=== PATIENT | female | born 1935 | race Two or more races ===

== ENCOUNTER 2022-10-14 09:53 | Inpatient (IN) | payer MEDICARE, MEDICAID ==
[~2022-10-14] VITALS: Ht 152.4 cm; Wt 75.0 kg
[2022-10-14] VITALS (32 sets, daily range): BP systolic 58–162; BP diastolic 21–110
[2022-10-14] MEDS ORDERED: SUCCINYLCHOLINE CHLORIDE 20 MG/ML 10ML VIAL IV ONE ×2 (10:20→10:30)
[2022-10-14] MEDS ORDERED: ETOMIDATE (2MG/ML) 20ML VIAL IV ONE ×2 (10:20→10:30)
[2022-10-14] MEDS ORDERED: MIDAZOLAM DRIP 50 mg/50mL 50 ML IV ONE (10:27)
[2022-10-14] MEDS ORDERED: MIDAZOLAM HCL 2MG/2ML 2ml VIAL (1mg/ml) ONE (10:28)
[2022-10-14] MEDS ORDERED: MIDAZOLAM HCL 5 MG/ML-1ML VIAL IV ONE (10:30)
[2022-10-14] MEDS: MIDAZOLAM DRIP 50 mg/50mL 50 ML IV SCH ×4 (10:45→21:34)
[2022-10-14] MEDS ORDERED: NOREPINEPHRINE 8 MG/250ML KIT 250 ML IV ONE ×2 (11:07→11:10)
[2022-10-14] MEDS ORDERED: FUROSEMIDE 40 MG/4 ML VIAL IV ONE (11:15)
[2022-10-14] MEDS ORDERED: AZITHROMYCIN 500MG/ 250ML 250 ML IV ONE (11:15)
[2022-10-14] MEDS: NOREPINEPHRINE 8 MG/250ML KIT 250 ML IV SCH ×3 (11:15→23:10)
[2022-10-14] MEDS ORDERED: cefTRIAXone 1GM/50ML D5W 50 ML IV ONE (11:15)
[2022-10-14 11:41] LABS: Hematocrit 32.3 % (36.0-46.0); Red Blood Cells 2.97 10^6/uL (4.0-5.20); Red Cell Distribution Width 16.8 % (11.8-14.3); White Blood Cell 17.5 10^3/uL (4.4-10.8)
[2022-10-14 11:57] LABS: Basophils % (manual) 0 (0.0-2.0); Blast Cells 0; Metamyelocytes % 0; Myelocytes % 0; Promyelocytes % 0; Reactive Lymphocytes 0
[2022-10-14 12:17] LABS: Lactic Acid w/Reflex 4.5 mmol/L (0.4-2.0)
[2022-10-14] MEDS ORDERED: NITROGLYCERIN 0.4 MG SL TAB SL PRN (12:30)
[2022-10-14] MEDS ORDERED: MORPHINE SULFATE INJ 2 MG/ml SYRG IV PRN (12:30)
[2022-10-14] MEDS ORDERED: AZITHROMYCIN 500MG/ 250ML 250 ML IV SCH (13:00)
[2022-10-14] MEDS ORDERED: FURO40TA4 PO (13:08)
[2022-10-14] MEDS ORDERED: METO-289 PO (13:08)
[2022-10-14 13:14] LABS: Albumin 1.4 g/dL (3.4-5.0); BUN/Creatinine Ratio 21.9; Calcium 7.8 mg/dL (8.5-10.1); Potassium 4.9 mmol/L (3.5-5.1)
[2022-10-14] MEDS ORDERED: ALBUTEROL SULF 2.5 MG/0.5ML(0.5%) NEB SOLN NEB PRN (13:15)
[2022-10-14 13:17] LABS: Urine WBC None Seen /hpf (0 - 5)
[2022-10-14 13:21] LABS: Bilirubin, Total 4.4 mg/dL (0.2-1.0); Total Protein 5.3 g/dL (6.4-8.2)
[2022-10-14 13:23] LABS: Band Neutrophils % (manual) 9; Eosinophils % (manual) 1 (0-7); Lymphocytes % (manual) 6 (10.0-50.0); Monocytes % (manual) 2 (0-12)
[2022-10-14] MEDS: SODIUM CHLORIDE 0.9% 1,000 ML IV SCH (13:32)
[2022-10-14 13:46] LABS: Urine Bacteria FEW /hpf (None Seen); Urine Blood 1+ /uL (Negative); Urine Specific Gravity 1.016 (1.001-1.035)
[2022-10-14] MEDS ORDERED: DOPamine 1600MCG/ML D5W 250 ML IV SCH (14:00)
[2022-10-14 14:59] LABS: Protein, Urine 77.5 mg/dL (0.0-11.9)
[2022-10-14 15:21] LABS: Magnesium 2.2 mg/dL (1.6-2.6); Phosphorus 2.9 mg/dL (2.5-4.90)
[2022-10-14] MEDS: ALBUMIN 25% 100 ML IV SCH ×2 (15:32→22:25)
[2022-10-14 16:42] LABS: Cholesterol 112 mg/dL (< 200)
[2022-10-14 16:49] LABS: HDL Cholesterol 23 mg/dL (40-59); LDL Cholesterol 71 mg/dL (< 100); Triglycerides 67 mg/dL (< 150)
[2022-10-14] MEDS ORDERED: AMIODARONE HCL 200 MG TAB PO ONE (17:00)
[2022-10-14] MEDS ORDERED: ASPirin 81 mg TAB PO ONE (17:00)
[2022-10-14] MEDS: PROPOFOL 100 ML IV SCH ×2 (17:12→20:05)
[2022-10-14] MEDS: IPRATROPIUM BROM 0.5 MG/2.5ML INH SOL NEB SCH (18:04)
[2022-10-14] MEDS: ALBUTEROL SULF 2.5 MG/0.5ML(0.5%) NEB SOLN NEB SCH (18:05)
[2022-10-14] MEDS: FUROSEMIDE 20 MG/2 ML VIAL IV SCH (18:23)
[2022-10-14 18:33] LABS: Partial Thromboplastin Time 44.9 sec (24.6-33.4)
[2022-10-14 18:51] LABS: INR 1.96 (0.9-1.15)
[2022-10-14] MEDS ORDERED: MIDAZOLAM HCL 2MG/2ML 2ml VIAL (1mg/ml) IV ONE (19:15)
[2022-10-14] MEDS: PHENYLEPHRINE IV 250 ML IV SCH (20:08)
[2022-10-14] MEDS ORDERED: AMIODARONE HCL 200 MG TAB PO SCH (22:00)
[2022-10-15] VITALS (44 sets, daily range): BP systolic 58–193; BP diastolic 21–139
[2022-10-15] MEDS: ALBUTEROL SULF 2.5 MG/0.5ML(0.5%) NEB SOLN NEB SCH ×2 (00:26→06:10)
[2022-10-15] MEDS: IPRATROPIUM BROM 0.5 MG/2.5ML INH SOL NEB SCH ×3 (00:26→11:23)
[2022-10-15] MEDS: PHENYLEPHRINE IV 250 ML IV SCH ×6 (00:33→12:12)
[2022-10-15] MEDS ORDERED: VASOPRESSIN 20 UNIT/ML ONE (00:42)
[2022-10-15] MEDS ORDERED: VASOPRESSIN 20 UNITS in SODIUM CHL 0.9% 99 ML IV SCH (01:00)
[2022-10-15] MEDS ORDERED: FUROSEMIDE 20 MG/2 ML VIAL IV ONE (01:00)
[2022-10-15] MEDS ORDERED: EPINEPHrine HCL 250 ML IV ONE (02:36)
[2022-10-15] MEDS ORDERED: EPINEPHrine HCL 250 ML IV SCH (02:45)
[2022-10-15] MEDS: SODIUM CHLORIDE 0.9% 1,000 ML IV SCH (02:48)
[2022-10-15] MEDS: NOREPINEPHRINE 8 MG/250ML KIT 250 ML IV SCH ×3 (03:42→12:11)
[2022-10-15 04:11] LABS: Hemoglobin 10.2 g/dL (12.2-16.2)
[2022-10-15 04:13] LABS: Hematocrit 31.2 % (36.0-46.0); Mean Corpuscular Hemoglobin 38.2 pg (28.0-32.0); Mean Corpuscular Hgb Conc. 32.7 g/dL (32.0-36.0); Mean Corpuscular Volume 116.8 fL (80.0-100.0); Red Blood Cells 2.67 10^6/uL (4.0-5.20); Red Cell Distribution Width 17.5 % (11.8-14.3); White Blood Cell 17.7 10^3/uL (4.4-10.8)
[2022-10-15 04:22] LABS: Potassium 4.5 mmol/L (3.5-5.1)
[2022-10-15 04:25] LABS: Albumin 2.4 g/dL (3.4-5.0); BUN/Creatinine Ratio 17.7; Calcium 8.1 mg/dL (8.5-10.1)
[2022-10-15 04:28] LABS: Bilirubin, Total 5.6 mg/dL (0.2-1.0); Total Protein 5.6 g/dL (6.4-8.2)
[2022-10-15] MEDS ORDERED: DEXTROSE 50% SYRINGE 50 ML IV ONE ×2 (04:41→05:35)
[2022-10-15 04:47] LABS: Basophils % (manual) 0 (0.0-2.0); Blast Cells 0; Eosinophils % (manual) 0 (0-7); Metamyelocytes % 0; Myelocytes % 0; Promyelocytes % 0; Reactive Lymphocytes 0
[2022-10-15] MEDS: FUROSEMIDE 20 MG/2 ML VIAL IV SCH (05:19)
[2022-10-15] MEDS: MIDAZOLAM DRIP 50 mg/50mL 50 ML IV SCH (05:49)
[2022-10-15] MEDS: ALBUMIN 25% 100 ML IV SCH (06:00)
[2022-10-15 08:04] LABS: Band Neutrophils % (manual) 6; Lymphocytes % (manual) 10 (10.0-50.0); Monocytes % (manual) 4 (0-12)
[2022-10-15] MEDS ORDERED: cefTRIAXone 1GM/50ML D5W 50 ML IV SCH (09:00)
[2022-10-15] MEDS ORDERED: SODIUM BICARBONATE 50ML VIAL 50 ML in D5W/SOD CHL 0.45% 1,000 ML IV SCH ×2 (09:15→10:30)
[2022-10-15] MEDS ORDERED: BUMETANIDE INJECTION 12.5 MG in GIVE UN-DILUTED 0 ML IV SCH (09:15)
[2022-10-15] MEDS ORDERED: FUROSEMIDE 20 MG/2 ML VIAL IV SCH (10:00)
[2022-10-15] MEDS ORDERED: ASPirin 81 mg TAB PO SCH (10:00)
[2022-10-15] MEDS ORDERED: ENOXAPARIN SOD 40 MG/0.4 ML SYRINGE SC SCH (10:00)
[2022-10-15] MEDS ORDERED: CEFEPIME 1GM/ 50ML 50 ML IV ONE (10:30)
[2022-10-15] MEDS ORDERED: PANTOPRAZOLE 40 MG/10 ML VIAL INJ IV ONE (10:30)
[2022-10-15] MEDS ORDERED: VANCOMYCIN PER PHARMACY 0 MG IV SCH (10:30)
[2022-10-15] MEDS ORDERED: phytonadione 10 MG in SODIUM CHL 0.9% 50 ML IV ONE (10:45)
[2022-10-15] MEDS ORDERED: DEXTROSE (50%) 50ML SYRG IV PRN (11:00)
[2022-10-15] MEDS ORDERED: VANCOMYCIN 750mg/250ml 250 ML IV ONE (11:00)
[2022-10-15] MEDS ORDERED: ALBUTEROL MEDNEB 2.5 mg/3ml NEB NEB PRN (11:00)
[2022-10-15] MEDS ORDERED: NOREPINEPHRINE BITARTRATE 32 MG in SODIUM CHL 0.9% 218 ML IV SCH (11:15)
[2022-10-15] MEDS ORDERED: PHENYLEPHRINE INJ 80 MG in SODIUM CHL 0.9% 242 ML IV SCH (11:15)
[2022-10-15] MEDS ORDERED: EPINEPHrine HCL INJECTION 16 MG in D5W 5% 234 ML IV SCH (11:15)
[2022-10-15] MEDS ORDERED: ACCU-CHEK COMFORT CURVE STRIP VI SCH (12:00)
[2022-10-15] MEDS ORDERED: ALBUTEROL MEDNEB 2.5 mg/3ml NEB NEB SCH (12:00)
[2022-10-15] MEDS ORDERED: SODIUM BICARBONATE 8.4 % INJ 50ML VIAL IV ONE ×2 (12:46→13:00)
[2022-10-15] MEDS ORDERED: ALBUMIN 25% 100 ML IV ONE ×2 (12:48→13:00)
[2022-10-15] MEDS ORDERED: CEFEPIME 1GM/ 50ML 50 ML IV SCH (14:00)
[2022-10-16] MEDS ORDERED: PANTOPRAZOLE 40 MG/10 ML VIAL INJ IV SCH (10:00)
== END 2022-10-16 07:26 | disposition home or self-care (01) | DRG 720 ==
LOC: ER 09:53 → TELE 12:26 → ICU WEST 16:19
PROVIDERS: ADMIT Nurse Practitioner Family; ATTEND Internal Medicine
PROC: 5A1945Z Respiratory Ventilation, 24-96 Consecutive Hours (ICD-10-PCS; principal; 2022-10-14)
PROC: 0BH17EZ Insertion of Endotracheal Airway into Trachea, Via Natural or Artificial Opening (ICD-10-PCS; 2022-10-14)
PROC: 04HY32Z Insertion of Monitoring Device into Lower Artery, Percutaneous Approach (ICD-10-PCS; 2022-10-15)
DX: A41.9 Sepsis, unspecified organism (principal); N17.0 Acute kidney failure with tubular necrosis; J96.21 Acute and chronic respiratory failure with hypoxia; R65.21 Severe sepsis with septic shock; E44.0 Moderate protein-calorie malnutrition; I21.4 Non-ST elevation (NSTEMI) myocardial infarction; D68.9 Coagulation defect, unspecified; E83.51 Hypocalcemia; J18.9 Pneumonia, unspecified organism; Z66 Do not resuscitate; Z20.822 Contact with and (suspected) exposure to COVID-19; I50.43 Acute on chronic combined systolic (congestive) and diastolic (congestive) heart failure; D69.6 Thrombocytopenia, unspecified; E87.20 Acidosis, unspecified; E88.09 Other disorders of plasma-protein metabolism, not elsewhere classified; I11.0 Hypertensive heart disease with heart failure; D64.9 Anemia, unspecified; E66.01 Morbid (severe) obesity due to excess calories; I48.91 Unspecified atrial fibrillation; E16.2 Hypoglycemia, unspecified; K74.60 Unspecified cirrhosis of liver; Z68.32 Body mass index [BMI] 32.0-32.9, adult
CPT/HCPCS: 31500; 36415; 36556; 36600; 71045; 76700; 80053; 80061; 81001; 82570; 82805; 82962; 83036; 83605; 83735; 83880; 84100; 84156; 84300; 84443; 84484; 85007; 85027; 85610; 85730; 86850; 86900; 86901; 87040; 87070; 87081; 87205; 87426; 87804; 93005; 93306; 94002; 94003; 94640; 96365; 96366; 96367; 96375; 99291; C9113; G0378; J0171; J0330; J0696; J2250; J2704; J3430; J7060; P9047